=== PATIENT | male | born 1965 | race Caucasian/White ===

== ENCOUNTER 2020-05-19 11:12 | Outpatient (CLI) | payer BC, SELFPAY ==
--- NOTE | 2020-05-19 11:15 | XR_ITS ---
WS: [id number] LUMBAR SPINE FLEXION AND EXTENSION TECHNIQUE: 3 views of the lumbar spine: Lateral neutral, flexion, and extension views. CLINICAL INFORMATION: LOW BACK PAIN COMPARISON: None. FINDINGS: Normal lumbar alignment on the neutral view. Trace retrolisthesis L3 on L4 and L4 on L5. No instability on the flexion and extension views. Disc space narrowing worse L4-L5 and L5-S1. Modera te facet arthropathy L5-S1. XR/XR lumbar spine f/e only [id number] IMPRESSION: No instability on flexion-extension
== END 2020-05-19 11:13 | disposition home or self-care (01) ==
LOC: RADWPI 11:15
PROVIDERS: Family Provider Internal Medicine; PCP Internal Medicine; Visit Provider Nurse Practitioner
DX: M54.5 Low back pain (principal)
CPT/HCPCS: 72120

== ENCOUNTER 2020-05-25 15:59 | Outpatient (CLI) | payer BC, SELFPAY ==
--- NOTE | 2020-05-25 16:05 | CT_ITS ---
WS: [id number] CT of the lumbar spine, additional two-dimensional coronal and sagittal imaging was obtained. 05/25/20 Clinical Data: LOW BACK PAIN Comparison: Lumbar spine, 05/19/2020. DLP: 2083.[address] scans at [facility] use at least one of these dose optimization techniques: automat ed exposure control; mA and/or kV adjustment per patient size (includes targeted exams where dose is matched to clinical indication); or iterative reconstruction. Findings: There is minimal anterior osteoarthritic spurring from L1 through L5. There is degenerative disc narrowing at L5-S1. There is retrolisthesis of L4 on L5 and L5 on S1 of 0.2 cm. No compression fractures are seen. The transverse processes and SI joints are normal. T12-L1: No canal stenosis, disc bulge or foraminal narrowing is seen. L1-L2: No canal stenosis, disc bulge or foraminal narrowing is seen. L2-L3: There is a minimal disc bulge causing mild canal stenosis. L3-L4: There is a minimal disc bulge causing mild canal stenosis. L4-L5: There is disc bulging causing canal stenosis. L5-S1: There is disc bulging causing canal stenosis along with facet joint arthritis. CT/CT lumbar spine wo con* [id number] Impression: 1. 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 2. Degenerative disc narrowing at L5-S1. 3. Minimal retrolisthesis of 0.2 cm of L4 on L5 and L5 on S1. 4. Multilevel disc bulging causing mild canal stenosis.
== END 2020-05-25 16:00 | disposition home or self-care (01) ==
LOC: RADWPI 16:01
PROVIDERS: Family Provider Internal Medicine; PCP Internal Medicine; Visit Provider Anesthesiology Pain Medicine
DX: M54.5 Low back pain (principal); M47.9 Spondylosis, unspecified; M48.061 Spinal stenosis, lumbar region without neurogenic claudication
CPT/HCPCS: 72131

== ENCOUNTER 2025-09-10 10:49 | Outpatient (CLI) | payer OTHER, SELFPAY ==
[2025-09-10 11:14] VITALS: PULSE 59; RESP 18; O2SAT 91
== END 2025-09-10 10:50 | disposition home or self-care (01) ==
PROVIDERS: PCP Nurse Practitioner; Visit Provider Family Medicine
DX: J44.9 Chronic obstructive pulmonary disease, unspecified (principal); J98.8 Other specified respiratory disorders
CPT/HCPCS: 94060; J7613